=== PATIENT | female | born 1980 | race Caucasian/White ===

== ENCOUNTER 2018-09-11 14:48 | Emergency (ER) | payer OTHER ==
[~2018-09-11] VITALS: Ht 170.2 cm; Wt 133.8 kg
[~2018-09-11 14:48] MED LIST: (None)15 G1 EXT; AMOX500 PO; BENZ100A PO; CIPR500 PO; CODGUAEL PO; FLUT.05NI; HYDACE5 PO; HYDCHL25 PO; IBUP800 PO; LISHYD2025 PO; NAPR500 PO; NEBI10 PO; PHENA100 PO; PROM25 PO; RXOXYACE PO; TRAM50 PO
[2018-09-11] MEDS ORDERED: ONDA4ODT MM (15:27)
[2018-09-11] MEDS ORDERED: Sudogest60 MG PO (15:27)
[2018-09-11] MEDS ORDERED: Amoxicillin500 MG PO (15:27)
== END 2018-09-11 15:33 | disposition home or self-care (01) ==
LOC: ER 14:48
DX: J02.9 Acute pharyngitis, unspecified (principal); R11.2 Nausea with vomiting, unspecified; L01.00 Impetigo, unspecified; I10 Essential (primary) hypertension; Z88.1 Allergy status to other antibiotic agents; Z87.891 Personal history of nicotine dependence
CPT/HCPCS: 87081; 87430; 99282; J1100

== ENCOUNTER 2020-11-01 12:37 | Emergency (ER) | payer OTHER ==
[~2020-11-01] VITALS: Ht 170.2 cm; Wt 127.0 kg
[~2020-11-01 12:37] MED LIST changes: +Amoxicillin500 MG PO; +ONDA4ODT MM; +Sudogest60 MG PO
[2020-11-01] MEDS ORDERED: LISI20 PO (12:43)
[2020-11-01] MEDS ORDERED: AMLO10 PO (12:43)
[2020-11-01] MEDS ORDERED: HYDHCL25 PO (13:19)
== END 2020-11-01 13:26 | disposition home or self-care (01) ==
LOC: ER 12:37
DX: F41.9 Anxiety disorder, unspecified (principal); I10 Essential (primary) hypertension; Z87.891 Personal history of nicotine dependence
CPT/HCPCS: 99283

== ENCOUNTER → 2023-08-28 | Outpatient (CLI) | payer OTHER ==
[~2023-08-28] MED LIST changes: +AMLO10 PO; +HYDHCL25 PO; +LISI20 PO
[2023-08-29 12:14] LABS: Candida species (DNA Probe) Negative (NEGATIVE); G. vaginalis (DNA Probe) Positive (NEGATIVE); T. vaginalis (DNA Probe) Negative (NEGATIVE)
== END | disposition home or self-care (01) ==
LOC: LAB SHORT 09:30 → LAB 09:30
PROVIDERS: Nurse Practitioner Family
DX: Z01.419 Encounter for gynecological examination (general) (routine) without abnormal findings (principal)
CPT/HCPCS: 87480; 87510; 87660